=== PATIENT | male | born 1985 | race Caucasian/White ===

== ENCOUNTER 2025-01-29 12:39 | Emergency (ER) | payer SELFPAY ==
[2025-01-29 12:40] VITALS: BP 104/74; PULSE 68; RESP 16; TEMP 36.8; O2SAT 96; BMI 23.5
--- OUTSIDE RECORDS SUMMARY | 2025-01-29 12:47 | XMS_ITS | Clinical Summary ---
Author Organization [facility], [facility], [facility], and Affiliates Address [address] [facility] [address] [facility] [address] [facility] [address] [place] [address] Care Team Providers Care Movie Writer Name Role Phone Ledy Jennings MD Unavailable Pura Askew MD Unavailable Debbie Canales MD Primary Care Provider Allergies No known active allergies Medications imiquimod (ALDARA) 5 % creamIndication s:Anal condyloma APPLY A THIN LAYER 3 TIMES PER WEEK AT BEDTIME. LEAVE ON SKIN 6-10 HOURS, THEN WASH OFF. CONTINUE UNTIL WARTS FULLY CLEAR. 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 Chronic bilateral low back pain without sciatica 07/02/2022 Anxiety 05/07/2022 Slow transit constipation 10/19/2021 Chronic pain of left knee 10/19/2021 Immunizations Immunization Administration Dates Next Due HPV 9 GARDASIL 06/17/2023,06/01/2022,04/13/2022 Hep B,Adult 01/28/2024,06/17/2023,06/01/2022 ,06/01/2022 Social History Tobacco Use Types Packs/Day Years Used Date Smoking Tobacco: Former Tobacco Cessation:Counseling Given: Not Answered [facility] Utilities Answer Date Recorded In the past 12 months has th e electric, gas, oil, or water company threatened to shut off services in your home? Yes 10/02/2024 AUDIT-C Answer Date Recorded Q1: How often do you have a drink containing alc ohol? Monthly or less 10/02/2024 Q2: How many drinks containi ng alcohol do you have on a typical day when you are drinking? 1 or 2 10/02/2024 Q3: How often do you have si x or more drinks on one occasion? Less than monthly 10/02/2024 Overall Financial Resource Strain (CARDIA) Answe r Date Recorded How hard is it for you to pa y for the very basics like food, housing, medical care, and heating? Somewhat hard 10/02/2024 Hunger Vital Sign Answer Date Recorded Within the past 12 months, y ou worried that your food would run out before you got the money to buy more. Sometimes true Within the past 12 months, t he food you bought just didn't last and you didn't have money to get more. Sometimes true PRAPARE - Transportation Answer Date Re corded In the past 12 months, has l ack of transportation kept you from medical appointments or from getting medications? Patient declined 10/02/2024 In the past 12 months, has l ack of transportation kept you from meetings, work, or from getting things needed for daily living? Patient declined 10/02/2024 Housing Stability Vital Sign Answer Gilbert e Recorded In the last 12 months, was t here a time when you were not able to pay the mortgage or rent on time? Patient declined 10/03/19 25 Number of Times Moved in the Last Year Not on fi le 10/02/2024 Homeless in the Last Year Not on file 2024 Sex and Gender Information Value Date Recorded Sex Assigned at Male 02/11/2024 12:07 PM PDT Legal Sex Male 7:50 PM PDT Gender Identity Male 02/11/2024 12:07 PM PDT Sexual Orientation Straight 02/11/2024 12 :07 PM PDT Last Filed Vital Signs Vital Sign Reading Time Taken Comments Blood Pressure 133/87 10/29/2022 4:45 PM PDT Pulse 82 10/29/2022 4:45 PM PDT Temperature 36 C (96.8 F) 10/29/2022 3:45 PM PDT Respiratory Rate 17 10/29/2022 4:45 PM PDT Oxygen Saturation 96% 10/29/2022 4:45 PM PDT Inhaled Oxygen Concentration - - Weight 68 kg (150 lb) 10/02/2024 1:53 PM PDT Height 170.2 cm (5' 7 ) 10/02/2024 1:53 PM PDT Body Mass Index 23.49 10/02/2024 1:53 PM PDT Plan of Treatment Health Maintenance Due Date Last Done Comments Hepatitis B Routine Screening 1987 HIV Routine Screening 2005 Hepatitis C Routine Screening 2005 Td Immunization 2005 Tdap Immunization 2005 Covid-19 Vaccine ( season) 2024 Tobacco Screening 10/02/2025 10/02/2024 Zoster Vaccines (1 of 2) 2037 HPV Vaccines Completed 06/17/2023, 05/22, 04/13/2022 Hepatitis B Vaccines Completed 01/28/2024, 06/17/2023, 06/01/2022, Additional history exists Influenza Vaccines Completed 08/05/2024, 07/29/2024 Pneumococcal Vaccine (0-49 years) Aged Out No longer eligible based on patient's age to complete this topic [place] [address] Care Teams Movie Writer Relationship Specialty Start Date End Date Debbie Canales MD [address] [place] [address] [address] [place] [address] PCP - General Family Medicine 02/26/24 Ledy Jennings MD [address] [facility] [address] [place] [address] Gastroenterology 12/26/21 Pura Askew MD [address] [facility] [address] [place] [address] Hematology and Oncology 03/14/22
--- OUTSIDE RECORDS SUMMARY | 2025-01-29 12:47 | XMS_ITS | Referral Summary ---
Author Organization [facility], [facility], [facility], and Affiliates Address [address] [facility] [facility] [place] 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 Chronic bilateral low back pain without sciatica 07/02/2022 Anxiety 05/07/2022 Slow transit constipation 10/19/2021 Chronic pain of left knee 10/19/2021 Immunizations Immunization Administration Dates Next Due HPV 9 GARDASIL 06/17/2023,06/01/2022,04/13/2022 Hep B,Adult 01/28/2024,06/17/2023,06/01/2022 ,06/01/2022 Social History Tobacco Use Types Packs/Day Years Used Date Smoking Tobacco: Former Tobacco Cessation:Counseling Given: Not Answered [facility] Utilities Answer Date Recorded In the [...] 10/02/2024 1:53 PM PDT Plan of Treatment Not on file Insurance Care Teams Manager Interventional Relationship Specialty Start Date End Date Debbie Canales MD [address] [facility] [address] [place] [address] PCP - General Family Medicine 02/26/24 Ledy Jennings MD [address] [facility] [address] [place] [address] Gastroenterology 12/26/21 Pura Askew MD [address] [facility] [address] [place] [address] Hematology and Oncology 03/14/22
--- OUTSIDE RECORDS SUMMARY | 2025-01-29 12:48 | XMS_ITS | Data Portability ---
Author Organization [place] [facility] Address [address] [place] [address] Assessment Encounter Date Assessment Date Assessment LastModified by Organization Details LastModified Time 10/08/2024 10/08/2024 Review of 4V x-rays of the left knee performed at an outside facility on 10/02/2024 is notable for well-preserved joint spaces. - PA Flexion view: mild medial joint space narrowing Review of an MRI of the left knee performed at an outside facility on 09/05/2024 is notable for root tear of medial meniscus with loss of mid-body volume, Sadler's cyst. Plan: Upon review of physical examination and imaging, clinical impression is complex tearing and loss of medial meniscus volume of the left knee status post meniscectomy. Meniscus cartilage is vital to the healthy functioning of the knee joint. When the meniscus is damaged beyond repair, or has been removed in a prior surgery, the knee is lacking its main shock absorber and may progress down a degenerative pathway of osteoarthritis. Recommendation is for surgery to include left knee medial meniscal allograft transplantation. The risks and benefits of surgical intervention were discussed with Perry, who understands that any effort to make the joint better can make the joint worse. Stefani has complex tearing and subtotal volume loss of the medial meniscus, and therefore, is a good candidate for meniscal allograft transplantation. Replacing a meniscus with donor tissue can delay or prevent the need for a knee replacement and possibly even prevent the onset of osteoarthritis. Long-term data confirms that a meniscus transplant relieves pain, improves function, and returns people to sports, even if they already have arthritis. We have reviewed both conservative treatment and surgical options, and have agreed that the indications for and benefits of surgery outweigh those of continued conservative care. Perry understands the risks of the procedure, which include re-tearing or subluxing the meniscus. He understands he has a 100% of a bad knee if left untreated. Non-operative care options could include a combination of joint lubrication, ice, compression, elevation, anti-inflammatori es, weight-bearing modifications, range of motion exercises, strength training exercises, and physical therapy. Plan includes working with our physical therapists for a biomechanical gait assessment, strength training, manual therapy, and exercise education. [email or web address] Not available 10/09/2024 17:46:11 10/08/2024 10/08/2024 Perry presents fo r physical therapy s/p recommendation for medial meniscus allograft transplant of L knee with Dr. Back. Reviewed surgical protocol and expectations. Discussed pt limitations currently with lateral movement and dynamic activities limiting his ability to snow board, play tennis with kids, play with kids. Reviewed therapeutic exercises to strengthen LE quad, SL stability and lateral hip. Exercises were printed for patient via [employer]. Pt met with surgical first assistant after session. [email or web address] Not available 10/08/2024 16:14:44 Plan of Treatment Reminders Order Date Submit Date Provider Last Modified By Organization Details Last Modified Time Details Appointments None recorded. Lab None recorded. Referral None recorded. Procedures None recorded. Surgeries knee arthroscopy with meniscal transplant (SURG) 2024 025 [email or web address] Not available 13:35:46 Imaging None recorded. Medication Orders None recorded. Patient TargetsNo targets recorded. Patient Instructions Encounter Date Encounter Id Patient Instructions Last Modified By Organization Details Last Modified Time 10/08/2024 [id number] Access Code: [email or web address] URL: [email or web address] Date: 10/08/2024 Prepared by: Cindy Honeycutt Exercises - Squat with Chair Touch - 1 x daily - 7 x weekly - 3 sets - 10 reps - Single-Leg Macedonian Deadlift With Kettlebell - 1 x daily - 7 x weekly - 3 sets - 10 reps - Side Stepping with Resistance at Ankles - 1 x daily - 7 x weekly - 3 sets - 10 reps - Forward Monster Walks - 1 x daily - 7 x weekly - 3 sets - 10 reps - Backward Monster Walks - 1 x daily - 7 x weekly - 3 sets - 10 reps - Standing 3-Way Leg Reach with Resistance at Ankles and Counter Support - 1 x daily - 7 x weekly - 3 sets - 10 reps - Lateral Step Down - 1 x daily - 7 x weekly - 3 sets - 10 reps [email or web address] Not available 10/08/2024 16:09:57 Reason for Referral None Reported. Procedures Surgical History Date Name Laterality Status Provider Name and Address Organization Details Recorded Time 10/09/19 Rehab - 14940: Self Care/Home Mgmt. completed Cindy Honeycutt, DPT [address] [facility], [place], [address], [place] [facility] 10/08/2024 16:10:57 10/09/19 Rehab - 47260: Therapeutic Exercise completed Cindy Honeycutt, DARRIUST [address] [facility] [address], [place], [address], [place] [facility] 10/08/2024 16:11:08 Knee arthroscopy/robles bhargav completed Not Available Health Note 10/07/2024 19:46:32 Imaging Results None recorded. Procedure Notes None recorded. Medical Equipment None Reported. Allergies No known drug allergies Medications Name Sig Start Date Stop Date Status Note LastModified by Organization Details LastModified Time clotrimazole- betamethasone 1 %-0.05 % topical cream APPLY TOPICALLY TO THE AFFECTED AREA TWICE DAILY active Not Available Not Available No t Available amoxicillin 875 mg-potassium clavulanate 125 mg tablet TAKE 1 TABLET BY MOUTH IN THE MORNING AND 1 TABLET IN THE EVENING. DO ALL THIS FOR 14 DAYS active Not Available Not Available No t Available Vitals Date Recorded Body weight Provider Name an d Address Organization Details Last Updated DateTime 10/08/2024 80068.572592594 g Not Available Health Note 10/08/2024 14:40:24 Social History Question Answer Notes LastModified by Organizat ion Details LastModified Time Tobacco Smoking Status Former Smoker Not Available Health Note 10/07/2024 19:46:33 Which Illicit Or Recreational Drugs Have You Used? NONE [email or web address] Information not available 10/07/2024 What Was The Date Of Your Most Recent Tobacco Screening? 10/08/2024 [email or web address] Information not available 10/07/2024 Sex: Unknown Functional Status Question Answer Note LastModified by Organizat ion Details LastModified Time What is your level of alcohol consumption? Occasional [email or web address] Information not available 10/07/2024 What is your occupation? Student [email or web address] Information not available 10/07/2024 Mental Status None recorded. Family History Nothing Reported. Medical History Condition Response Diabetes N Coronary Artery Disease N Autoimmune disease N Bleeding Disorder N Hyperthyroidism N MRSA N Blood Clot N Congestive Heart Failure (CHF) N Hyperlipidemia N Cancer N Lung Disease N Hypothyroidism N Peripheral Vascular Disease N Hypercholesterolemia N Neurologic Disorder N Liver Disease N Gastrointestinal Disease N Heart Attack ([place]) N Hypertension N Kidney Disease N Past Encounters Encounter ID Performer Location Encounter Start Date Encounter Closed Date Diagnosis/Indication Diagnosis SNOMED-CT Code Diagnosis ICD10 Code Diagnosis Note [id number] Yoel Back MD [facility] - Main Office [address] [place] [address] 9 10/08/2024 14:40:20 10/08/2024 15:32:48 Tear of medial meniscus of knee 003901721 S83.232A History of arthroscopy of knee joint [id number] Z98.890 [place] [id number] Cindy Honeycutt DPT [facility] - Main Office [address] [place] [address] 9 10/08/2024 15:28:11 10/08/2024 16:26:45 Pain of left knee joint [id number] 33989 M25.562 Health Concerns Section Related Observation LastModified by Organization Detai ls LastModified Time None Recorded Concern Status LastModified by Organization Details LastModified Time None Recorded Advance Directives Directive None Recorded Payers Insurance Date Sequence Insurance Name Policy Number Policy Altamirano Covered Member ID Altamirano Member ID Guarantor Name 10/08/2024 1 *SELF PAY* Ig or Aibridgett 10/08/2024 *SELF PAY* Ig or Aibridgett Notes Date Note Type Note Provider Name and Address Organization Details Recorded Time text/html Perry Arceoernestinasamuel [id number] oldmalepresenting for an initial evaluation of left knee pain. He presents today 1 year, 11 months status post left knee arthroscopic medial meniscectomy surgery performed by Agustin Patrick MD at [facility] on 10/29/2022. He has been told approx. 25% of the medial meniscus was removed during this surgery. CC:left knee problemInjury description: Hurt knee in childhood. Was never diagnosed and it healed on its own. At age 35 I was diagnosed with a torn meniscus. Had a surgery to remove part of the medial meniscus. Now I am still having issues getting back to sports post surgery Injury date:02/19/2022Quality:Sha rp, StabbingSeverity: current: Progression:Staying the sameAssociated symptoms:popping/clickingP atient describes diagnosis as: Missing part of my medial meniscus Recommended tx: i have done surgery and some other surgeries were recently recommended to me by a different doctor. i also have a knee brace Tx tried:activity modification, anti-inflammatory meds, bracing, compression, home exercise programe, PT, restPrevious surgery:yesPrevious imaging:yesSports/activity goals: Being able to get back to snowboarding and tennis Now Perry complains of sharp medial joint line pain aggravated by lateral movements with sports such as snowboarding or tennis. He took two seasons off from snowboarding and tentatively returned this season, noting ongoing weakness of the left leg since surgery. He is able to snowboard straight, but ton of pain before surgmeniscectomy queta patrick 2 years ago [facility],two seasons off from snowboardingattempted snowboarding this seasontried to be cautious, weakness of left knee muscles since surg2-3 [place], if going straight no pain. sharp pain medial with lateral movementsswimming an cycling since surg w/o paintrying to get kids into tennis, lateral movements jeniset Cindy Honeycutt, DPT [address] [address], [place], [address], [place] - [facility] 10/08/2024 16:14:59 5 text/html Perry Smith [id number] oldmalepresenting for an initial evaluation of left knee pain. He presents today 1 year, 11 months status post left knee arthroscopic medial meniscectomy surgery performed by Agustin Patrick MD at [facility] on 10/29/2022. He has been told approx. 25% of the medial meniscus was removed during this surgery. CC:left knee problemInjury description: Hurt knee in childhood. Was never diagnosed and it healed on its own. At age 35 I was diagnosed with a torn meniscus. Had a surgery to remove part of the medial meniscus. Now I am still having issues getting back to sports post surgery Injury date:02/19/2022Quality:Sha rp, StabbingSeverity: current: Progression:Staying the sameAssociated symptoms:popping/clickingP atient describes diagnosis as: Missing part of my medial meniscus Recommended tx: i have done surgery and some other surgeries were recently recommended to me by a different doctor. i also have a knee brace Tx tried:activity modification, anti-inflammatory meds, bracing, compression, home exercise programe, PT, restPrevious surgery:yesPrevious imaging:yesSports/activity goals: Being able to get back to snowboarding and tennis Now Perry complains of sharp medial joint line pain aggravated by lateral movements with sports such as snowboarding or tennis. He took two seasons off from snowboarding and tentatively returned this season, noting ongoing weakness of the left leg since surgery. He is able to snowboard straight, but there is a sharp flare-up of pain with medial and lateral movements. He is able to swim and cycle without discomfort. 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 Yoel Back MD [address], [address], [facility] 11/05/2024 19:01:50
--- OUTSIDE RECORDS SUMMARY | 2025-01-29 12:48 | XMS_ITS | Clinical Summary ---
Author Organization [facility] Address [address] [place] [address] Care Team Providers Care Soda Fountain Manager Name Role Phone Unavailable Primary Care Provider Unavailabl e Source Comments PLEASE NOTE, if this patient is a minor, it may be UNLAWFUL to discuss sensitive information that is contained in these records (such as FAMILY PLANNING, MENTAL HEALTH or SUBSTANCE ABUSE) with the minor patient's parent or other person without the patient's specific authorization.[facility] Allergies No known active allergies Medications * This document contains information received from the source organization and may not represent a complete record from that organization. imiquimod (ALDARA) 5 % cream 03/14/2022 Active human papillomav vac,9-idalia,PF, 0.5 mL susp Inject 0.5 mL into the muscle 05/10/2022 Active hydrOXYzine HCL (ATARAX) 50 mg tablet 05/06/2022 Active buPROPion HCL (WELLBUTRIN) 75 mg tablet Take 25 mg by mouth twice a day Active hydrOXYzine HCL (ATARAX) 25 mg tablet Take 25 mg by mouth once daily as needed 08/01/2022 Active Active Problems No known active problems Immunizations Immunization Administration Dates Next Due HPV 9 (Gardasil) 06/17/2023,06/01/2022, 2 Hep B, Adult/Adol (OXIDZPP-P-LZANQ/RECOMBIVAX-ADULT) 01/28/2024,06/17/2023,06/01/2022 INFLUENZA, SEASONAL, INJECTABLE 08/05/2024 Social History Tobacco Use Types Packs/Day Years Used Date Smoking Tobacco: Never Smokeless Tobacco: Never Tobacco Cessation:Counseling Given: Not Answered Social Connections Answer Date Recorded Connectedness 0 04/12/2024 Financial Resource Strain Answer Date R ecorded Financial Resource Strain 0 2020 Stress Answer Date Recorded Stress 0 09/01/2020 Physical Activity Answer Date Recorded Physical Activity 0 09/01/2020 Food Insecurity Answer Date Recorded Food 0 04/16/2024 Transportation Needs Answer Date Record ed Transportation 0 09/01/2020 Housing Stability Answer Date Recorded Housing 0 09/01/2020 Safety and Environment Answer Date Babak rded Safety 0 09/01/2020 Utilities Answer Date Recorded Utilities 0 09/01/2020 Employment Answer Date Recorded Stress 0 04/12/2024 Sex and Gender Information Value Date Recorded Sex Assigned at Male 06/24/2023 2:14 PM PST Legal Sex Male 9:27 PM PST Gender Identity Male 04/13/2022 11:09 AM PDT Sexual Orientation Straight 06/24/2023 2: 14 PM PST Plan of Treatment Health Maintenance Due Date Last Done Comments Anxiety Screening 1987 LTBI Screening (#1) 1987 Hypertension Screening (#1) 2005 Imm-DTaP/Tdap/Td (1 - Tdap) 2006 Imm-Hepatitis A (1 of 2 - Ri sk 2-dose series) 2006 Mmu-TMBRY-38 (1 - ) 03/22/2024 Alcohol and Drug Screen 07/22/2024 Depression Annual Screen 07/22/2024 Imm-Influenza (#1) 2025 08/05/2024 Tobacco Screening 09/04/2025 09/04/2024 Diabetes Screening 08/26/2027 08/26/2024, 0 08/26/2024, 08/26/2024, Additional history exists Imm-Hepatitis B Completed 01/28/2024, 05/23, 06/01/2022 HIV Screening Completed 08/19/2024, 07/0 03/2024, 06/17/2023, Additional history exists Hepatitis C Screening Completed 09/04/2024 , 06/17/2023, 04/13/2022 Procedures Procedure Name Priority Date/Time Associated Diagnosis Comments HEPATITIS C AB W/RFLX HCV RNA, QT, RT PCR Routine 09/04/2024 11:15 AM PST Encounter for surveillance of other contraceptives High risk sexual behavior, unspecified type HIV-1/2 AG/AB COMBO, ALERE (POCT) Routine 08/19/2024 12:50 PM PST Encounter for surveillance of other contraceptives High risk sexual behavior, unspecified type from Last 3 Months or Most Recently Relevant to Health Maintenance Results * Hepatitis C (09/04/2024 11:15 AM PST) HEPATITIS C ANTIBODY NON-REACT NELA NON-REACT NELA [facility] [place] Comment: HCV antibody was non-reactive. There is no laboratory evidence of HCV infection. In most cases, no further action is required. However, if recent HCV exposure is suspected, a test for HCV RNA (test code 33066) is suggested. For additional information please refer to http://education.[employer]/faq/MYK17e0 (This link is being provided for informational/ educational purposes only.) Blood Blood / Unknown 09/04/2024 1 1:15 AM PST 09/05/2024 1:18 AM PST Cookie Henriquez NP LAB - BLOOD DRAW Final Re sult [facility] [id number] [place] [address], [facility] [address] [address] * HIV-1/2 AG/AB COMBO, ALERE (POCT) (08/19/2024 12:50 PM PST) HIV 1 AG NON-REACTI VE (NEGATIVE) NON-REACTI VE [facility] HIV 1/2 AB NON-REACTI VE (NEGATIVE) NON-REACTI VE [facility] INTERNAL CONTROL PASS PASS [facility] Blood Blood / Unknown 08/19/2024 1 2:50 PM PST Rae Hernandez CNM LAB - BLOOD DRAW Final Result [facility] [address] [place] [address], [place] [phone] from Last 3 Months or Most Recently Relevant to Health Maintenance [place] [address] [facility]
--- NOTE | 2025-01-29 12:51 | ED_ITS ---
HPI - Skin/Abscess/Foreign Bdy General: Chief complaint: Skin/Abscess/Foreign Body Stated complaint: bumps with puss coming out of them Time Seen by Provider: 01/29/25 12:45 Source: patient Mode of arrival: ambulatory Limitations: no limitations History of Present Illness: Patient is a 39-year-old male resents to ED today for evaluation of multiple skin lesions. Patient states [place] and sleeping outside and camping. They state several other members of their group have reportedly been diagnosed with staph. He initially thought skin lesions could be tick or mosquito bites. He does feel like they have a small amount of pus in them. No systemic symptoms. MD complaint: rash Onset (ago): day(s) Location: generalized Severity: mild Quality: pruritic Relieving factors: none Exacerbating factors: none Context: other (camping, staph exposure) Associated symptoms: Reports no associated symptoms; Deny fever(s), nausea or vomiting Treatments prior to arrival: none Related Data Previous Rx's ?Medication ?Instructions ?Recorded cephalexin 500 mg capsule 500 mg PO Q6H 7 days #28 cap s 01/29/25 Allergies Allergy/AdvReac Type Severity Reaction Status Date / Time No Known Allergies Allergy Verified 01/29/25 12:49 Review of Systems Const: Denies: fever(s) GI: Denies: nausea or vomiting Musc: Denies: joint pain Skin/Breast: Reports: rash Physical Exam Const: COMMON NORMALS: no acute distress, average body habitus, patient oriented x3, no limitations, healthy appearing, alert and well nourished GENE RAL APPEARANCE: cooperative ORIENTATION/CONSCIOUSNESS: Yes awake, Yes oriented to person, Yes oriented to place and Yes oriented to time Neck/C-Spine: COMMON NORMALS: no lymphadenopathy Lymph: LYMPHATIC: no lymphadenopathy noted Resp: COMMON NORMALS: normal respiratory effort Extremity: GENERAL: Yes normal exam except as noted Neuro: COMMON NORMALS: patient oriented x3 SENSORIUM/ORIENTATION: Yes alert, Yes oriented to person, Yes oriented to place and Yes oriented to time Skin: NARRATIVE SKIN EXAM: mild generalized folliculitis noted Course Vital Signs: Vital signs: Vital Signs Temperature 98.3 F 01/29/25 12:40 Pulse Rate 68 01/29/25 12:40 Respiratory Rate 16 01/29/25 12:40 Blood Pressure 104/74 01/29/25 12:40 Pulse Oximetry 96 01/29/25 12:40 Oxygen Delivery Me thod Room Air 01/29/25 12:40 MDM - Skin/Abscess/Foreign Bdy Medicial Decision Making Patient most likely with staph folliculitis. Will place him on Keflex. Discussed other conservative therapies. Medical Records I reviewed the patient's medical records. No radiology studies performed this visit Discharge Plan Discharge Patient Disposition: Home Clinical Impression: Staphylococcus aureus superficial folliculitis Condition: Stable Prescriptions: New cephalexin 500 mg capsule 500 mg PO Q6H 7 Days Qty: 28 0RF Discharge Orders: Discharge ED (Routine); Ordered 01/29/25 Ordered By: Jerri Rodriguez Patient Instructions: Folliculitis (ED), Patient Portal & [facility] Instructions Print Language: Tamazight Coding Level of Care Code ED Neuropsychiatric Aide for Roland Sibley
== END 2025-01-29 13:15 | disposition home or self-care (01) ==
PROVIDERS: Emergency Provider Physician Assistant
DX: L73.8 Other specified follicular disorders (principal); B95.61 Methicillin susceptible Staphylococcus aureus infection as the cause of diseases classified elsewhere
CPT/HCPCS: 99283